=== PATIENT | female | born 1960 | race African-American/Black ===

== ENCOUNTER 2019-11-09 13:47 | Outpatient (CLI) | payer OTHER, SELFPAY ==
[2019-11-09 14:30] LABS: Basophils Percent Auto 0.4 % (0.2-1.2); Eosinophils Absolute Auto 0.1 K/mm3 (0-0.3); Eosinophils Percent Auto 1.8 % (0-4.4); Hemoglobin 13.4 g/dL (12.0-15.0); Lymphocytes Absolute Auto 1.64 K/mm3 (0.9-3.2); Lymphocytes Percent Auto 33.1 % (18.3-44.2); Mean Corpuscular HGB Conc 32.7 g/dl (32-36); Mean Corpuscular Hemoglobin 30.6 pg (26-34); Mean Corpuscular Volume 93.6 fl (80-100); Monocytes Absolute Auto 0.3 K/mm3 (0.1-0.6); Monocytes Percent Auto 6.5 % (2.6-8.5); Neutrophils Absolute Auto 2.9 K/mm3 (1.3-6.7); Neutrophils Percent Auto 58.2 % (45.5-73.1); Platelet Count Result 274 k/mm3 (150-375); Red Blood Count 4.38 M/mm3 (4.2-5.4); Red Cell Distribution Width 12.7 % (11.5-14.5)
[2019-11-09 14:42] LABS: Alanine Aminotransferase 54 U/L (4-35); Albumin Level 4.2 g/dL (3.5-5.1); Alkaline Phosphatase 166 U/L (38-126); Aspartate Amino Transferase 58 U/L (14-36); Bilirubin,Total 0.6 mg/dL (0.2-1.3); Blood Urea Nitrogen 14 mg/dL (7-17); Calcium 9.4 mg/dL (8.4-10.2); Carbon Dioxide 29 mmol/L (22-30); Chloride 104 mmol/L (98-107); Cholesterol 284 mg/dL (0-200); Estimated Glomerular Filt Rate > 60; Glucose 95 mg/dL (65-105); HDL Direct 84 mg/dL; Sodium 139 mmol/L (137-145); Triglycerides 96 mg/dL (<150)
[2019-11-09 14:53] LABS: LDL Cholesterol Direct 144 mg/dL
[2019-11-09 16:22] LABS: Vitamin D 25 Hydroxy < 12.8 ng/mL
== END 2019-11-09 13:48 | disposition home or self-care (01) ==
LOC: ANHLAB 13:50
PROVIDERS: PCP Internal Medicine; Visit Provider Nurse Practitioner
DX: Z13.228 Encounter for screening for other metabolic disorders (principal); E78.5 Hyperlipidemia, unspecified; E55.9 Vitamin D deficiency, unspecified
CPT/HCPCS: 36415; 80053; 80061; 82306; 85025

== ENCOUNTER 2020-07-23 10:00 | Outpatient (CLI) | payer OTHER, SELFPAY ==
[2020-07-23 10:22] LABS: Basophils Percent Auto 0.4 % (0.2-1.2); Eosinophils Absolute Auto 0.1 K/mm3 (0-0.3); Eosinophils Percent Auto 1.8 % (0-4.4); Hematocrit 41.6 % (37.0-47.0); Hemoglobin 13.7 g/dL (12.0-15.0); Immature Granulocyte Absolute 0.01 K/mm3 (0.00-0.031); Immature Granulocyte Percent A 0.2 % (0-0.5); Lymphocytes Absolute Auto 1.39 K/mm3 (0.9-3.2); Lymphocytes Percent Auto 30.9 % (18.3-44.2); Mean Corpuscular HGB Conc 32.9 g/dl (32-36); Mean Corpuscular Hemoglobin 31.1 pg (26-34); Mean Corpuscular Volume 94.5 fl (80-100); Monocytes Absolute Auto 0.4 K/mm3 (0.1-0.6); Monocytes Percent Auto 7.8 % (2.6-8.5); Neutrophils Absolute Auto 2.7 K/mm3 (1.3-6.7); Neutrophils Percent Auto 58.9 % (45.5-73.1); Platelet Count Result 247 k/mm3 (150-375); Red Cell Distribution Width 12.5 % (11.5-14.5); White Blood Count 4.5 K/mm3 (4.5-10.0)
[2020-07-23 10:37] LABS: Alanine Aminotransferase 41 U/L (4-35); Albumin Level 3.9 g/dL (3.5-5.1); Alkaline Phosphatase 137 U/L (38-126); Anion Gap 5 mmol/L (8-16); Aspartate Amino Transferase 43 U/L (14-36); Bilirubin,Total 0.7 mg/dL (0.2-1.3); Blood Urea Nitrogen 11 mg/dL (7-17); Calcium 8.9 mg/dL (8.4-10.2); Carbon Dioxide 30 mmol/L (22-30); Chloride 102 mmol/L (98-107); Cholesterol 292 mg/dL (0-200); Estimated Glomerular Filt Rate > 60; Glucose 112 mg/dL (65-105); HDL Direct 82 mg/dL; Sodium 137 mmol/L (137-145); Triglycerides 131 mg/dL (<150)
[2020-07-23 10:48] LABS: LDL Cholesterol Direct 163 mg/dL
[2020-07-23 11:05] LABS: Vitamin D 25 Hydroxy 22.5 ng/mL
[2020-07-23 17:27] LABS: Hemoglobin A1C 5.4 % (<5.7)
== END 2020-07-23 10:01 | disposition home or self-care (01) ==
PROVIDERS: Nurse Practitioner; PCP Internal Medicine; Visit Provider Nurse Practitioner
DX: E78.5 Hyperlipidemia, unspecified (principal); E55.9 Vitamin D deficiency, unspecified; I10 Essential (primary) hypertension; R73.9 Hyperglycemia, unspecified
CPT/HCPCS: 36415; 80053; 80061; 82306; 83036; 85025

== ENCOUNTER 2020-09-03 14:04 | Outpatient (CLI) | payer OTHER, SELFPAY | END 2020-09-03 14:05 | disposition home or self-care (01) | LOC: ANHCOVIDVC 14:04 | PROVIDERS: PCP Internal Medicine | DX: Z23 Encounter for immunization (principal) | CPT/HCPCS: 0001A; 91300 ==

== ENCOUNTER 2020-09-24 13:32 | Outpatient (CLI) | payer OTHER, SELFPAY | END 2020-09-24 13:33 | disposition home or self-care (01) | LOC: ANHCOVIDVC 13:32 | PROVIDERS: PCP Internal Medicine | DX: Z23 Encounter for immunization (principal) | CPT/HCPCS: 0002A; 91300 ==

== ENCOUNTER 2021-09-09 14:13 | Emergency (ER) | payer OTHER, SELFPAY ==
[2021-09-09 14:19] VITALS: BP 172/95; PULSE 67; RESP 16; TEMP 36.6; O2SAT 99
--- NOTE | 2021-09-09 14:31 | ED.URI ---
HPI - URI/Sore Throat General Chief Complaint: Upper Respiratory Infection Stated Complaint: Headache, cough, sore throat, dizzy Time Seen by Provider: 09/09/21 14:31 Source: patient and RN notes reviewed Mode of arrival: ambulatory Limitations: no limitations History of Present Illness HPI Narrative: 61-year-old female presented for complaint of not feeling well endorsing body aches, runny nose, dry cough and woozy. She denies chest pain, heart racing, shortness of breath, wheezing, nausea, vomiting, diarrhea, urinary complaints, fever or chills. She has boosted for COVID. She has not had a flu shot. She denies sick contacts. She has not taken anything for symptoms MD elicited complaint: cough Related Data Home Medications Medication Instructions Recorded Confirmed aspirin 81 mg tablet,delayed 81 mg PO DAILY 11/13/19 07/26/20 release cholecalciferol (vitamin D3) 125 5,000 unit PO DAILY cap 07/26/20 07/26/20 mcg (5,000 unit) capsule Allergies Allergy/AdvReac Type Severity Reaction Status Date / Time No Known Drug Allergies Allergy Unknown Unknown Verified 11/13/19 08:28 Review of Systems Review of Systems: CONSTITUTIONAL: Denies malaise, chills, sweats, fever EYES: Denies visual changes, redness, or discharge ENT: Reports rhinorrhea, congestion, sinus pain, otalgia, sore throat CARDIOVASCULAR: Denies chest pain, palpitations, edema RESPIRATORY: Reports cough, post nasal drainage. Denies dyspnea GASTROINTESTINAL: Denies abdominal pain, nausea, vomiting, diarrhea SKIN: Denies rash or itching MUSCULOSKELETAL: denies myalgia NEUROLOGIC: Denies headache PMFSH Past Medical History Medical History HLD (hyperlipidemia) HTN (hypertension) Vitamin D deficiency Surgical History Surgical History History of section Family History Family History Mother Patient's mother is in good health Family history of diabetes mellitus in first degree relative Family history of coronary artery disease Sibling Patient's sister is in good health Patient's brother is in good health Cerebrovascular accident Family history of malignant neoplasm of breast in first degree relative, Onset Age: 55 Father Hypertension Cerebrovascular accident Other Diabetes mellitus Family history of arthritis Family history of malignant neoplasm Social History Social History Smoking status: Never smoker Alcohol intake: current Exam Narrative: GENERAL: well-appearing HEAD: Normocephalic EYES: conjunctivae clear ENT: Mucous membranes moist. TM pearly ferreira with dull light reflex left ear; right ear cerumen unable to visualize TM; no tragal tenderness. Oropharynx erythematous without lesions or exudate, no drooling, no hoarseness, no trismus, uvula midline. NECK: Supple. No lymphadenopathy CHEST: Clear to auscultation, breath sounds equal. No wheezing, rhonchi, rales, or stridor. No respiratory distress, speaks in full sentences. HEART: Regular rate and rhythm. No murmur heard. SKIN: Warm, dry, no rash. NEURO: Alert and oriented x3. PSYCH: Normal mood and affect Course Course Emergency Course: Patient is aware of diagnosis, understands and agrees to treatment plan. Anticipatory guidance given. Patient agrees to follow-up as directed and is aware of reasons to seek care at the emergency department. Portions of this record may have been created with voice recognition software Level of Care: Express Care Visit Vital Signs Vital signs: Vital Signs Temperature 97.9 F 09/09/21 14:19 Pulse Rate 67 09/09/21 14:19 Respiratory Rate 16 09/09/21 14:19 Blood Pressure 172/95 H 09/09/21 14:19 Pulse Oximetry 99 09/09/21 14:19 Temperature 97.9 F 09/09/21 14:19
== END 2021-09-09 15:08 | disposition home or self-care (01) ==
PROVIDERS: Emergency Provider Nurse Practitioner Family; PCP Internal Medicine
DX: J06.0 Acute laryngopharyngitis (principal); I10 Essential (primary) hypertension; Z20.822 Contact with and (suspected) exposure to COVID-19; E78.5 Hyperlipidemia, unspecified; E55.9 Vitamin D deficiency, unspecified; Z79.82 Long term (current) use of aspirin
CPT/HCPCS: 87426; 87804; 99213; C9803; G0463

== ENCOUNTER 2022-03-11 11:10 | Outpatient (CLI) | payer OTHER, SELFPAY ==
[2022-03-11 18:31] LABS: Basophils Percent Auto 0.4 % (0.2-1.2); Eosinophils Absolute Auto 0.1 K/mm3 (0-0.3); Eosinophils Percent Auto 2.2 % (0-4.4); Hematocrit 41.4 % (37.0-47.0); Hemoglobin 13.1 g/dL (12.0-15.0); Immature Granulocyte Absolute 0.01 K/mm3 (0.00-0.031); Immature Granulocyte Percent A 0.2 % (0-0.5); Lymphocytes Absolute Auto 1.74 K/mm3 (0.9-3.2); Lymphocytes Percent Auto 32.6 % (18.3-44.2); Mean Corpuscular HGB Conc 31.6 g/dl (32-36); Mean Corpuscular Hemoglobin 30.6 pg (26-34); Mean Corpuscular Volume 96.7 fl (80-100); Mean Platelet Volume 9.5 fl (7.4-10.4); Monocytes Absolute Auto 0.3 K/mm3 (0.1-0.6); Monocytes Percent Auto 6.4 % (2.6-8.5); Neutrophils Absolute Auto 3.1 K/mm3 (1.3-6.7); Neutrophils Percent Auto 58.2 % (45.5-73.1); Platelet Count Result 289 k/mm3 (150-375); Red Blood Count 4.28 M/mm3 (4.2-5.4); Red Cell Distribution Width 12.9 % (11.5-14.5); White Blood Count 5.3 K/mm3 (4.5-10.0)
[2022-03-11 18:44] LABS: Hemoglobin A1C 5.5 % (<5.7)
[2022-03-11 18:46] LABS: Alanine Aminotransferase 62 U/L (6-35); Albumin Level 4.1 g/dL (3.5-5.1); Alkaline Phosphatase 158 U/L (38-126); Anion Gap 10 mmol/L (8-16); Aspartate Amino Transferase 94 U/L (14-36); Bilirubin,Total 0.5 mg/dL (0.2-1.3); Blood Urea Nitrogen 14 mg/dL (7-17); Calcium 9.3 mg/dL (8.4-10.2); Carbon Dioxide 29 mmol/L (22-30); Chloride 101 mmol/L (98-107); Cholesterol 324 mg/dL (0-200); Estimated Glomerular Filt Rate > 60; Glucose 105 mg/dL (65-110); HDL Direct 82 mg/dL; Potassium 4.5 mmol/L (3.4-5.0); Sodium 140 mmol/L (137-145); Triglycerides 95 mg/dL (<150)
[2022-03-11 19:04] LABS: LDL Cholesterol Direct 166 mg/dL
[2022-03-11 19:26] LABS: Vitamin D 25 Hydroxy 22.1 ng/mL
== END 2022-03-11 11:11 | disposition home or self-care (01) ==
LOC: ANHGOSHLAB 11:11
PROVIDERS: PCP Internal Medicine; Visit Provider Clinical Nurse Specialist
DX: R73.9 Hyperglycemia, unspecified (principal); I10 Essential (primary) hypertension; E55.9 Vitamin D deficiency, unspecified
CPT/HCPCS: 36415; 80053; 80061; 82306; 83036; 84443; 85025

== ENCOUNTER 2022-03-13 10:35 | Outpatient (CLI) | payer OTHER, SELFPAY ==
[2022-03-13 19:58] LABS: Iron 96 ug/dL (37-170)
[2022-03-13 20:07] LABS: Alanine Aminotransferase 70 U/L (6-35); Alkaline Phosphatase 170 U/L (38-126); Anion Gap 7 mmol/L (8-16); Aspartate Amino Transferase 61 U/L (14-36); Bilirubin,Total 0.5 mg/dL (0.2-1.3); Blood Urea Nitrogen 12 mg/dL (7-17); Calcium 9.4 mg/dL (8.4-10.2); Carbon Dioxide 28 mmol/L (22-30); Chloride 102 mmol/L (98-107); Estimated Glomerular Filt Rate > 60; Glucose 112 mg/dL (65-110); Sodium 137 mmol/L (137-145)
[2022-03-13 20:08] LABS: Percent Iron Saturation 29 % (20-50)
[2022-03-13 20:40] LABS: Hepatitis B Surface Antigen Negative (Negative)
[2022-03-13 20:50] LABS: HIV 1/2 Ab P24 Ag Result Negative (Negative)
== END 2022-03-13 10:36 | disposition home or self-care (01) ==
LOC: ANHGOSHLAB 10:36
PROVIDERS: PCP Internal Medicine; Visit Provider Clinical Nurse Specialist
DX: R74.8 Abnormal levels of other serum enzymes (principal)
CPT/HCPCS: 36415; 80053; 82728; 83540; 83550; 86703; 87340; G0432

== ENCOUNTER → 2022-03-24 08:10 | Outpatient (CLI) | payer OTHER, SELFPAY ==
--- NOTE | ~2022-03-24 | US_ITS ---
EXAMINATION: US right upper quadrant DATE: 03/24/2022 08:30 INDICATION: Abnormal liver function tests TECHNIQUE: Multiple grayscale and Doppler ultrasound images of the abdomen were obtained. COMPARISON: None available FINDINGS: The head and body of the pancreas are normal. The pancreatic tail is obscured by bowel gas. The liver is normal with normal echogenicity and echotexture. No surface nodularity. Normal hepatope doc flow in the main portal vein. The gallbladder is normal with no abnormal wall thickening, pericho lecystic fluid or stones. The normal common bile duct measures 4 mm. There was no sonographic Flores sign. IMPRESSION: 1. No sonographic correlate for the patient's symptoms. Reviewed, dictated and finalized at location A.
== END ==
PROVIDERS: PCP Clinical Nurse Specialist; Visit Provider Clinical Nurse Specialist
DX: R74.8 Abnormal levels of other serum enzymes (principal)
CPT/HCPCS: 76705

== ENCOUNTER 2023-03-08 14:47 | Emergency (ER) | payer OTHER, SELFPAY ==
[2023-03-08 15:11] VITALS: BP 178/97; PULSE 73; RESP 18; TEMP 35.8; O2SAT 97
--- NOTE | 2023-03-08 15:37 | ED.URI ---
HPI - URI/Sore Throat General Chief Complaint: Upper Respiratory Infection Stated Complaint: Cold symptoms Time Seen by Provider: 03/08/23 15:30 Source: patient and RN notes reviewed Mode of arrival: ambulatory Limitations: no limitations History of Present Illness HPI Narrative: Patient presents today complaining of 3 day history of cough, sore throat, body aches, congestion, rhinorrhea. Worse over the last 2 days. Denies fever or shortness of breath. She currently rates her pain 4/10 and has been taking ibuprofen and cough medicine with mild relief. No history of asthma or COPD. Denies known sick contacts. She is a nonsmoker Related Data Home Medications Medication Instructions Recorded Confirmed cholecalciferol (vitamin D3) 125 5,000 unit PO DAILY 07/26/20 03/08/23 mcg (5,000 unit) capsule Allergies Allergy/AdvReac Type Severity Reaction Status Date / Time No Known Drug Allergies Allergy Unknown Unknown Verified 03/08/23 15:06 Review of Systems Review of Systems: CONSTITUTIONAL: Denies fever, chills, or sweats.+ body aches EYES: Denies visual changes, redness, or discharge. ENT: + right ear pain, sore throat, congestion, rhinorrhea CARDIOVASCULAR: Denies chest pain, palpitations, or edema. RESPIRATORY: Denies dyspnea.+ cough GASTROINTESTINAL: Denies abdominal pain, nausea, vomiting, or diarrhea. GENITOURINARY: Denies dysuria or hematuria. SKIN: Denies rash, itching, or wounds. MUSCULOSKELETAL: Denies back pain, joint pain, or myalgia. NEUROLOGIC: Denies headache, numbness, tingling, or weakness. PSYCH: Denies depression or anxiety. [facility] Past Medical History Medical History HLD (hyperlipidemia) HTN (hypertension) Vitamin D deficiency Surgical History Surgical History History of section Family History Family History Mother Patient's mother is in good health Family history of diabetes mellitus in first degree relative Family history of coronary artery disease Sibling Patient's sister is in good health Patient's brother is in good health Cerebrovascular accident Family history of malignant neoplasm of breast in first degree relative, Onset Age: 55 Father Hypertension Cerebrovascular accident Other Diabetes mellitus Family history of arthritis Family history of malignant neoplasm Social History Social History Smoking status: Never smoker Alcohol intake: current Comments At time of signature, I have reviewed and agree with nursing past medical, surgical, social and family history unless otherwise noted. Please see nursing chart for further information. There is no relevant family history pertinent to the presenting complaint Exam Narrative: GENERAL: Well-appearing, well-nourished, and in no acute distress. HEAD: Normocephalic, atraumatic. EYES: EOMI. No redness or drainage. Conjunctivae normal. ENT: Mucous membranes pink and moist. Nares clear. No rhinorrhea. TMs normal bilaterally. Throat normal. Uvula midline. NECK: Normal AROM. Supple. No lymphadenopathy. CHEST: No respiratory distress. Clear to auscultation. Harsh cough noted. HEART: Regular rate and rhythm. No murmur appreciated. EXTREMITIES: Normal range of motion. No edema. SKIN: Warm, dry, no rash. Capillary refill normal. Normal skin turgor. NEURO: No focal deficits. Alert and oriented x3. Gait steady. PSYCH: Normal affect. No signs of depression or anxiety. Course Course Level of Care: Express Care Visit Vital Signs Vital signs: Vital Signs Temperature 96.5 F L 03/08/23 15:11 Pulse Rate 73 03/08/23 15:11 Respiratory Rate 18 03/08/23 15:11 Blood Pressure 178/97 H 03/08/23 15:11 Pulse Oximetry 97 03/08/23 15
== END 2023-03-08 15:58 | disposition home or self-care (01) ==
PROVIDERS: Emergency Provider Nurse Practitioner; PCP Internal Medicine
DX: U07.1 COVID-19 (principal); E78.5 Hyperlipidemia, unspecified; I10 Essential (primary) hypertension; E55.9 Vitamin D deficiency, unspecified
CPT/HCPCS: 87081; 87426; 87880; 99213; C9803; G0463

== ENCOUNTER 2024-01-20 10:51 | Emergency (ER) | payer OTHER, SELFPAY ==
[2024-01-20 11:00] VITALS: BP 191/96; PULSE 73; RESP 16; TEMP 36.2; O2SAT 100
[2024-01-20 11:14] VITALS: BP 190/87
--- NOTE | 2024-01-20 11:25 | ECG_ITS ---
Test Date: 2024-01-20 11:36:16 Measurements Intervals [place] Rate: 63 P: 39 [place]: 203 QRS: -12 QRSD: 114 T: 160 QT: 449 QTc: 462 Interpretive Statements SINUS RHYTHM DELAYED PRECORDIAL R/S TRANSITION LEFT VENTRICULAR HYPERTROPHY AND ST-T CHANGE T WAVE ABNORMALITY IN ATNTEROLATERAL LEADS- CONSIDER ISCHEMIA BASELINE ARTIFACT- I, II, III, AVR, AVL, AVF, V1-V6 ABNORMAL ECG No previous ECG available for comparison Electronically Signed On 01-20-2024 12:00:55 CDT by Jay Gardner D.O.
--- NOTE | 2024-01-20 11:28 | ED.GENADULT ---
HPI - General Adult General Chief complaint: Unspecified Stated complaint: High Blood Pressure Time Seen by Provider: 01/20/24 11:19 Source: patient and RN notes reviewed Mode of arrival: ambulatory Limitations: no limitations History of Present Illness HPI narrative: Patient presents today complaining of mild dizziness and increased heart rate as well as increased blood pressure. Symptoms began this morning. 1.5 hours prior to exam, patient's blood pressure was measured at home and was 213/98. This was approximately 15 minutes after taking her blood pressure medication. Upon exam, patient states she is feeling better. Patient states she does take her hypertensive medications but not at the same time everyday. Denies chest pain, shortness of breath, headache, numbness or tingling, weakness or any other symptoms. States she has had several episodes of dizziness in the past and has never been evaluated for them. Related Data Home Medications Medication Instructions Recorded Confirmed cholecalciferol (vitamin D3) 125 5,000 unit PO DAILY 07/26/20 01/20/24 mcg (5,000 unit) capsule Allergies Allergy/AdvReac Type Severity Reaction Status Date / Time No Known Drug Allergies Allergy Unknown Unknown Verified 01/20/24 11:08 Review of Systems Review of Systems: CONSTITUTIONAL: Denies body aches, fever, chills, or sweats. EYES: Denies visual changes, redness, or discharge. ENT: Denies rhinorrhea, congestion, sore throat, or otalgia. CARDIOVASCULAR: Denies chest pain, palpitations, or edema. RESPIRATORY: Denies cough or dyspnea. GASTROINTESTINAL: Denies abdominal pain, nausea, vomiting, or diarrhea. GENITOURINARY: Denies dysuria or hematuria. SKIN: Denies rash, itching, or wounds. MUSCULOSKELETAL: Denies back pain, joint pain, or myalgia. NEUROLOGIC: Denies headache, numbness, tingling, or weakness.+ dizziness PSYCH: Denies depression or anxiety. [facility] Past Medical History Medical History HLD (hyperlipidemia) HTN (hypertension) Vitamin D deficiency Surgical History Surgical History History of section Family History Family History Mother Patient's mother is in good health Family history of diabetes mellitus in first degree relative Family history of coronary artery disease Sibling Patient's sister is in good health Patient's brother is in good health Cerebrovascular accident Family history of malignant neoplasm of breast in first degree relative, Onset Age: 55 Father Hypertension Cerebrovascular accident Other Diabetes mellitus Family history of arthritis Family history of malignant neoplasm Social History Social History Smoking status: Never smoker Alcohol intake: current Comments At time of signature, I have reviewed and agree with nursing past medical, surgical, social and family history unless otherwise noted. Please see nursing chart for further information. There is no relevant family history pertinent to the presenting complaint Exam Narrative: GENERAL: Well-appearing, well-nourished, and in no acute distress. HEAD: Normocephalic, atraumatic. EYES: EOMI. PERRL. No redness or drainage. Conjunctivae normal. ENT: Mucous membranes pink and moist. NECK: Normal AROM. Supple. No lymphadenopathy. CHEST: No respiratory distress. Clear to auscultation. HEART: Regular rate and rhythm. No murmur appreciated. Normal peripheral pulses. MUSCULOSKELETAL: No bony tenderness. EXTREMITIES: Normal range of motion. No edema. SKIN: Warm, dry, no rash. Capillary refill normal. Normal skin turgor. NEURO: No focal deficits. Alert and oriented x3. Gait steady. PSYCH: Normal affect. No signs of depression or anxiety. Course C
== END 2024-01-20 11:59 | disposition home or self-care (01) ==
PROVIDERS: Emergency Provider Nurse Practitioner; PCP Internal Medicine
DX: R42 Dizziness and giddiness (principal); I10 Essential (primary) hypertension; R94.31 Abnormal electrocardiogram [ECG] [EKG]; E78.5 Hyperlipidemia, unspecified; E55.9 Vitamin D deficiency, unspecified
CPT/HCPCS: 93005; 99213; G0463

== ENCOUNTER 2024-01-21 16:36 | Emergency (ER) | payer OTHER, SELFPAY ==
[2024-01-21 17:21] VITALS: BP 153/76; PULSE 71; RESP 20; TEMP 36.1; O2SAT 98
--- NOTE | 2024-01-21 17:22 | ECG_ITS ---
Test Date: 2024-01-21 19:01:15 Measurements Intervals [place] Rate: 64 P: 32 SD: 209 QRS: -17 QRSD: 112 T: 143 QT: 422 QTc: 438 Interpretive Statements SINUS RHYTHM POSSIBLE LEFT ATRIAL ENLARGEMENT INTRAVENTRICULAR CONDUCTION DELAY DELAYED PRECORDIAL R/S TRANSITION LEFT VENTRICULAR HYPERTROPHY AND ST-T CHANGE T WAVE ABNORMALITY IN LATERAL LEADS- CONSIDER ISCHEMIA BASELINE ARTIFACT- II, III, AVR, AVL, AVF, V1 ABNORMAL ECG Compared to ECG 01/20/2024 11:36:16 NO SIGNIFICANT CHANGE Electronically Signed On 01-21-2024 20:42:45 CDT by Jay Gardner D.O.
--- NOTE | 2024-01-21 17:23 | ED.RECABL ---
HPI - Recheck/Abnormal Lab/Rx General Chief Complaint: Recheck/Abnormal Lab/Rx Stated Complaint: HTN Time Seen by Provider: 01/21/24 17:23 Focused HPI: this is a 63-year-old female that presents to the emergency department for elevated blood pressure reading. Reports her primary has been trying to tweak her medications. She is continuing to be elevated. Her family member took her blood pressure today and was over 200 systolic which prompted them to be seen. She is not having any symptoms currently. Reports she felt like she had some palpitations yesterday. Denies chest pain, shortness of breath, headache. GENERAL: Well-appearing, well-nourished, and in no acute distress. HEAD: Normocephalic, atraumatic. CHEST: Clear to auscultation. ?No respiratory distress. HEART: Regular rate and rhythm.? NEURO: ?Alert and oriented x3. Patient screened in triage and initial orders placed.? ?Additional care and disposition to be based upon?diagnostic testing and treatment. Related Data Home Medications Medication Instructions Recorded Confirmed cholecalciferol (vitamin D3) 125 5,000 unit PO DAILY 07/26/20 01/20/24 mcg (5,000 unit) capsule Allergies Allergy/AdvReac Type Severity Reaction Status Date / Time No Known Drug Allergies Allergy Unknown Unknown Verified 01/23/24 13:45 PMFSH Past Medical History Medical History HLD (hyperlipidemia) HTN (hypertension) Vitamin D deficiency Surgical History Surgical History History of section Family History Family History Mother Patient's mother is in good health Family history of diabetes mellitus in first degree relative Family history of coronary artery disease Sibling Patient's sister is in good health Patient's brother is in good health Cerebrovascular accident Family history of malignant neoplasm of breast in first degree relative, Onset Age: 55 Father Hypertension Cerebrovascular accident Other Diabetes mellitus Family history of arthritis Family history of malignant neoplasm Social History Social History Smoking status: Never smoker Alcohol intake: current Course Vital Signs Vital signs: Vital Signs Temperature 96.9 F L 01/21/24 17:21 Pulse Rate 71 01/21/24 17:21 Respiratory Rate 20 01/21/24 17:21 Blood Pressure 153/76 H 01/21/24 17:21 Pulse Oximetry 98 01/21/24 17:21 Oxygen Delivery Room Air 01/21/24 17:21 Temperature 96.9 F L 01/21/24 17:21 Pulse Rate 71 01/21/24 17:21 Respiratory Rate 20 01/21/24 17:21 Blood Pressure 153/76 H 01/21/24 17:21 Pulse Oximetry 98 01/21/24 17:21 Oxygen Delivery Room Air 01/21/24 17:21 MDM - Recheck/Abnormal Lab/Rx Lab Data 01/21/24 19:07 01/21/24 19:07 Labs: Lab Results 01/21/24 Range/Units 19:07 WBC 6.5 (4.5-10.0) K/mm3 RBC 4.25 (4.2-5.4) M/mm3 Hgb 13.2 (12.0-15.0) g/dL Hct 40.2 (37.0-47.0) % MCV 94.6 (80-100) fl MCH 31.1 (26-34) pg MCHC 32.8 (32-36) g/dl RDW 12.9 (11.5-14.5) % Plt Count 261 (150-375) k/mm3 MPV 8.9 (7.4-10.4) fl Immature Gran % (Auto) 0.2 (0-0.5) % Neut % (Auto) 62.1 (45.5-73.1) % Lymph % (Auto) 30.4 (18.3-44.2) % [place] % (Auto) 5.4 (2.6-8.5) % Eos % (Auto) 1.6 (0-4.4) % Baso % (Auto) 0.3 (0.2-1.2) % Lymph # (Auto) 1.96 (0.9-3.2) K/mm3 [place] # (Auto) 0.4 (0.1-0.6) K/mm3 Eos # (Auto) 0.1 (0-0.3) K/mm3 Baso # (Auto) 0.0 (0.0-0.1) K/mm3 Abs Immat Gran (auto) 0.01 (0.00-0.031) K/mm3 Absolute Neuts (auto) 4.0 (1.3-6.7) K/mm3 Absolute Nucleated RBC 0.000 (0.0-0.012) K/mm3 Nucleated RBC % 0.0 (0.0-0.2) % Sodium 139 (137-145) mmol/L Potassium 4.0 (3.4-5.0) mmol/L Chloride 105 (9
[2024-01-21 19:15] LABS: Basophils Percent Auto 0.3 % (0.2-1.2); Eosinophils Absolute Auto 0.1 K/mm3 (0-0.3); Eosinophils Percent Auto 1.6 % (0-4.4); Hematocrit 40.2 % (37.0-47.0); Hemoglobin 13.2 g/dL (12.0-15.0); Immature Granulocyte Absolute 0.01 K/mm3 (0.00-0.031); Immature Granulocyte Percent A 0.2 % (0-0.5); Lymphocytes Absolute Auto 1.96 K/mm3 (0.9-3.2); Lymphocytes Percent Auto 30.4 % (18.3-44.2); Mean Corpuscular HGB Conc 32.8 g/dl (32-36); Mean Corpuscular Hemoglobin 31.1 pg (26-34); Mean Corpuscular Volume 94.6 fl (80-100); Mean Platelet Volume 8.9 fl (7.4-10.4); Monocytes Absolute Auto 0.4 K/mm3 (0.1-0.6); Monocytes Percent Auto 5.4 % (2.6-8.5); Neutrophils Percent Auto 62.1 % (45.5-73.1); Platelet Count Result 261 k/mm3 (150-375); Red Blood Count 4.25 M/mm3 (4.2-5.4); Red Cell Distribution Width 12.9 % (11.5-14.5); White Blood Count 6.5 K/mm3 (4.5-10.0)
[2024-01-21 19:25] LABS: Alanine Aminotransferase 42 U/L (6-35); Albumin Level 4.1 g/dL (3.5-5.1); Alkaline Phosphatase 164 U/L (38-126); Anion Gap 7 mmol/L (4-12); Aspartate Amino Transferase 47 U/L (14-36); Bilirubin,Total 0.4 mg/dL (0.2-1.3); Blood Urea Nitrogen 19 mg/dL (7-17); Calcium 9.8 mg/dL (8.4-10.2); Carbon Dioxide 27 mmol/L (22-30); Chloride 105 mmol/L (98-107); Estimated CRCL calculation 83 ml/min; Estimated Glomerular Filt Rate > 60; Glucose 127 mg/dL (65-110); Sodium 139 mmol/L (137-145)
== END 2024-01-21 21:22 | disposition left against medical advice (07) ==
PROVIDERS: Emergency Provider Physician Assistant; PCP Internal Medicine
DX: I10 Essential (primary) hypertension (principal); E78.5 Hyperlipidemia, unspecified; E55.9 Vitamin D deficiency, unspecified
CPT/HCPCS: 36415; 80053; 85025; 93005; 99199

== ENCOUNTER 2024-01-23 13:29 | Emergency (ER) | payer OTHER, SELFPAY ==
[2024-01-23] VITALS (11 sets, daily range): BP systolic 151–179; BP diastolic 52–88; PULSE 56–63; RESP 13–18; TEMP 36.7; O2SAT 96–99
--- NOTE | ~2024-01-23 | XR_ITS ---
XR chest 2V DATE: 01/23/2024 14:04 INDICATION: Chest pain, hypertension TECHNIQUE: PA and lateral views COMPARISON: 03/26/2014 2 view chest FINDINGS: There is cardiomegaly, the transverse cardiothoracic ratio 16.7/30.8. There is aortic tortu osity. No hilar or mediastinal enlargement. No pulmonary infiltrate or consolidation, pleural effusion or pulmonary vascular congestion or pneumo thorax is detected. IMPRESSION: Mild cardiomegaly No active pulmonary disease Reviewed, dictated and finalized at location J.
--- NOTE | ~2024-01-23 | CT_ITS ---
CT brain wo con Ordering provider: Josesito Zamorano APRN History: 63 years Female with . dizziness, patiño, htn . Comparison: March 26, 2014 Technique: CT of the head without contrast. Radiation reduction technique utilized. The dose-length product was 605.33 mGy-cm FINDINGS: BRAIN PARENCHYMA AND CSF SPACES: No midline shift, mass effect or hemorrhage. The brain parenchyma a nd CSF spaces are otherwise normal. Empty sella turcica. VISUALIZED PARANASAL SINUSES: Well aerated. MASTOIDS: Well aerated. BONES: The bones appear intact. SOFT TISSUES: Visualized nasopharynx is normal. Superficial soft tissues are normal. IMPRESSION: No acute intracranial findings. Reviewed, dictated and finalized at location A.
--- NOTE | 2024-01-23 13:30 | ECG_ITS ---
Test Date: 2024-01-23 13:35:14 Measurements Intervals [place] Rate: 60 P: 34 [place]: 211 QRS: -13 QRSD: 118 T: 164 QT: 444 QTc: 447 Interpretive Statements SINUS RHYTHM WITH FIRST DEGREE AV BLOCK POSSIBLE LEFT ATRIAL ENLARGEMENT INTRAVENTRICULAR CONDUCTION DELAY BORDERLINE R WAVE PROGRESSION, ANTERIOR LEADS LEFT VENTRICULAR HYPERTROPHY AND ST-T CHANGE T WAVE ABNORMALITY IN ANTEROLATERAL LEADS- CONSIDIER ISCHEMIA BASELINE ARTIFACT- I, II, III, AVR, AVL, AVF, V1 ABNORMAL ECG Compared to ECG 01/21/2024 19:01:15 NO SIGNIFICANT CHANGE Electronically Signed On 01-23-2024 15:14:48 CDT by Jay Gardner D.O.
[2024-01-23 13:47] LABS: Basophils Percent Auto 0.4 % (0.2-1.2); Eosinophils Absolute Auto 0.1 K/mm3 (0-0.3); Hematocrit 41.2 % (37.0-47.0); Hemoglobin 13.9 g/dL (12.0-15.0); Lymphocytes Absolute Auto 1.71 K/mm3 (0.9-3.2); Lymphocytes Percent Auto 33.8 % (18.3-44.2); Mean Corpuscular HGB Conc 33.7 g/dl (32-36); Mean Corpuscular Hemoglobin 31.6 pg (26-34); Mean Corpuscular Volume 93.6 fl (80-100); Mean Platelet Volume 8.9 fl (7.4-10.4); Monocytes Absolute Auto 0.4 K/mm3 (0.1-0.6); Monocytes Percent Auto 7.5 % (2.6-8.5); Neutrophils Absolute Auto 2.9 K/mm3 (1.3-6.7); Neutrophils Percent Auto 56.3 % (45.5-73.1); Platelet Count Result 253 k/mm3 (150-375); Red Cell Distribution Width 12.6 % (11.5-14.5); White Blood Count 5.1 K/mm3 (4.5-10.0)
--- NOTE | 2024-01-23 13:50 | ED.CHESTPAIN ---
HPI - Chest Pain General Chief Complaint: Chest Pain Stated Complaint: tightness in chest Time Seen by Provider: 01/23/24 13:50 Source: patient Mode of arrival: ambulatory Limitations: no limitations History of Present Illness HPI narrative: Verónica is a 63-year-old female patient presenting to the emergency room today with complaints of chest tightness, dizziness, and high blood pressure. She reports her highest systolic pressure over the last 3 days was 213. she denies any associated shortness of breath. History hyperlipidemia and hypertension. States she had a headache and blurry vision yesterday but that has subsided. Related Data Home Medications Medication Instructions Recorded Confirmed cholecalciferol (vitamin D3) 125 5,000 unit PO DAILY 07/26/20 01/20/24 mcg (5,000 unit) capsule Allergies Allergy/AdvReac Type Severity Reaction Status Date / Time No Known Drug Allergies Allergy Unknown Unknown Verified 01/23/24 13:45 Review of Systems Review of Systems: Pertinent positives per HPI. Patient denies any fever, chills, rash, headache, visual changes, cough, runny nose, sore throat, shortness of breath, palpitations, nausea, vomiting, diarrhea, constipation, abdominal pain, or any urinary issues. [facility] Past Medical History Medical History HLD (hyperlipidemia) HTN (hypertension) Vitamin D deficiency Surgical History Surgical History History of section Family History Family History Mother Patient's mother is in good health Family history of diabetes mellitus in first degree relative Family history of coronary artery disease Sibling Patient's sister is in good health Patient's brother is in good health Cerebrovascular accident Family history of malignant neoplasm of breast in first degree relative, Onset Age: 55 Father Hypertension Cerebrovascular accident Other Diabetes mellitus Family history of arthritis Family history of malignant neoplasm Social History Social History Smoking status: Never smoker Alcohol intake: current Comments At the time of my signature, I reviewed and agree with the nursing past medical, surgical, social, and family history. There is no relevant family history pertinent to the patient complaint. Exam Narrative: General: Well-developed, obese, in no apparent distress Head: Normocephalic, atraumatic. Cardio: Regular rate and rhythm, s1 and s2 normal, no murmur appreciated. Resp: Clear to auscultation bilaterally, no rhonchi, rales, wheezing or rubs. Extremities: No deformity, no edema, no cyanosis, capillary refill less than 2 seconds, peripheral pulses palpable and strong. Integumentary: [place], warm, and dry, intact without lesion, no rashes. Course Course Emergency Course: Portions of this record may have been created with voice recognition software. Vital Signs Vital signs: Vital Signs Temperature 36.7 C 01/23/24 13:41 Pulse Rate 60 01/23/24 13:41 Respiratory Rate 17 01/23/24 13:41 Blood Pressure 179/77 H 01/23/24 13:41 Pulse Oximetry 99 01/23/24 13:41 Oxygen Delivery Room Air 01/23/24 13:41 Temperature 36.7 C 01/23/24 13:41 Pulse Rate 62 01/23/24 16:44 Respiratory Rate 17 01/23/24 16:44 Blood Pressure 127/84 01/23/24 16:44 Pulse Oximetry 99 01/23/24 16:44 Oxygen Delivery Room Air 01/23/24 15:18 Vital signs reviewed MDM - Chest Pain MDM Narrative Medical decision making narrative: At the time of visit patient is resting comfortably on the exam table. Patient appears to be nontoxic. EKG: EKG shows sinus rhythm with a first-degree AV block heart rate [address] elevation, depression, or T-wave inversions. Repeat EKG s
[2024-01-23] MEDS: ASPIRIN 81 MG CHEWABLE TABLET 324 MG PO (13:55)
[2024-01-23 13:58] LABS: Prothrombin Time 13.1 Seconds (11.1-14.7)
[2024-01-23 13:59] LABS: Partial Thromboplastin Time 27.6 Seconds (22.3-36.8)
[2024-01-23 14:02] LABS: Alanine Aminotransferase 39 U/L (6-35); Albumin Level 4.1 g/dL (3.5-5.1); Alkaline Phosphatase 150 U/L (38-126); Anion Gap 7 mmol/L (4-12); Aspartate Amino Transferase 37 U/L (14-36); Bilirubin,Total 0.7 mg/dL (0.2-1.3); Blood Urea Nitrogen 13 mg/dL (7-17); Calcium 9.2 mg/dL (8.4-10.2); Carbon Dioxide 28 mmol/L (22-30); Chloride 102 mmol/L (98-107); Estimated CRCL calculation 80 ml/min; Estimated Glomerular Filt Rate > 60; Glucose 95 mg/dL (65-110); Lipase 81 U/L (23-300); Sodium 137 mmol/L (137-145)
[2024-01-23 14:14] LABS: Troponin I < 0.012 ng/mL (0.000-0.034)
--- NOTE | 2024-01-23 16:16 | ECG_ITS ---
Test Date: 2024-01-23 16:21:09 Measurements Intervals [place] Rate: 58 P: 37 [place]: 210 QRS: -15 QRSD: 121 T: 157 QT: 460 QTc: 452 Interpretive Statements SINUS BRADYCARDIA WITH FIRST DEGREE AV BLOCK POSSIBLE LEFT ATRIAL ENLARGEMENT DELAYED PRECORDIAL R/S TRANSITION LEFT VENTRICULAR HYPERTROPHY AND ST-T CHANGE T WAVE ABNORMALITY IN ANTEROLATERAL LEADS- CONSIDER ISCHEMIA BASELINE ARTIFACT- I, II, III, AVR, AVL, AVF, V1-V6 ABNORMAL ECG Compared to ECG 01/23/2024 13:35:14 NO SIGNIFICANT CHANGE Electronically Signed On 01-23-2024 21:08:26 CDT by Jay Gardner D.O.
[2024-01-23 16:48] LABS: Troponin I < 0.012 ng/mL (0.000-0.034)
== END 2024-01-23 17:37 | disposition home or self-care (01) ==
PROVIDERS: Emergency Medicine; Emergency Provider Nurse Practitioner Family; PCP Internal Medicine
DX: R07.89 Other chest pain (principal); R42 Dizziness and giddiness; I10 Essential (primary) hypertension; E78.5 Hyperlipidemia, unspecified; E55.9 Vitamin D deficiency, unspecified; Z79.899 Other long term (current) drug therapy; I44.0 Atrioventricular block, first degree; R00.1 Bradycardia, unspecified; R94.31 Abnormal electrocardiogram [ECG] [EKG]; I51.7 Cardiomegaly
CPT/HCPCS: 36415; 70450; 71046; 80053; 83690; 84484; 85025; 85610; 85730; 93005; 99284; A9270

== ENCOUNTER 2024-02-01 09:18 | Outpatient (CLI) | payer OTHER, SELFPAY ==
[2024-02-01 14:19] LABS: Basophils Percent Auto 0.4 % (0.2-1.2); Eosinophils Absolute Auto 0.1 K/mm3 (0-0.3); Eosinophils Percent Auto 1.7 % (0-4.4); Hematocrit 40.7 % (37.0-47.0); Hemoglobin 13.3 g/dL (12.0-15.0); Immature Granulocyte Absolute 0.01 K/mm3 (0.00-0.031); Immature Granulocyte Percent A 0.2 % (0-0.5); Lymphocytes Percent Auto 27.8 % (18.3-44.2); Mean Corpuscular HGB Conc 32.7 g/dl (32-36); Mean Corpuscular Hemoglobin 31.1 pg (26-34); Mean Corpuscular Volume 95.3 fl (80-100); Monocytes Absolute Auto 0.3 K/mm3 (0.1-0.6); Monocytes Percent Auto 6.4 % (2.6-8.5); Neutrophils Percent Auto 63.5 % (45.5-73.1); Platelet Count Result 274 k/mm3 (150-375); Red Blood Count 4.27 M/mm3 (4.2-5.4); Red Cell Distribution Width 12.2 % (11.5-14.5); White Blood Count 4.7 K/mm3 (4.5-10.0)
[2024-02-01 14:34] LABS: Alanine Aminotransferase 54 U/L (6-35); Albumin Level 3.9 g/dL (3.5-5.1); Alkaline Phosphatase 158 U/L (38-126); Anion Gap 7 mmol/L (4-12); Aspartate Amino Transferase 78 U/L (14-36); Bilirubin,Total 0.8 mg/dL (0.2-1.3); Blood Urea Nitrogen 14 mg/dL (7-17); Calcium 9.5 mg/dL (8.4-10.2); Carbon Dioxide 32 mmol/L (22-30); Chloride 101 mmol/L (98-107); Cholesterol 237 mg/dL (0-200); Estimated Glomerular Filt Rate > 60; Glucose 99 mg/dL (65-110); HDL Direct 64 mg/dL; Potassium 3.5 mmol/L (3.4-5.0); Sodium 140 mmol/L (137-145); Triglycerides 79 mg/dL (<150)
[2024-02-01 14:45] LABS: LDL Cholesterol Direct 117 mg/dL
[2024-02-01 14:53] LABS: Vitamin D 25 Hydroxy 42.1 ng/mL
[2024-02-01 16:08] LABS: Hemoglobin A1C 5.8 % (<5.7)
== END 2024-02-01 09:19 | disposition home or self-care (01) ==
LOC: ANHGOSHLAB 09:19
PROVIDERS: PCP Internal Medicine; Visit Provider Clinical Nurse Specialist
DX: R73.9 Hyperglycemia, unspecified (principal); E55.9 Vitamin D deficiency, unspecified; E78.5 Hyperlipidemia, unspecified; I10 Essential (primary) hypertension; Z13.228 Encounter for screening for other metabolic disorders
CPT/HCPCS: 36415; 80053; 80061; 82306; 83036; 85025

== ENCOUNTER 2024-08-19 11:44 | Emergency (ER) | payer MEDICARE, SELFPAY ==
--- NOTE | ~2024-08-19 | XR_ITS ---
EXAMINATION: XR chest 2V DATE: 08/19/2024 14:12 INDICATION: Influenza. TECHNIQUE: Frontal and lateral views of the chest were obtained. COMPARISON: Chest 2 view 01/23/2024 FINDINGS: There is mild atelectasis at left lung base. No pleural effusion or pneumothorax. The heart size is normal. IMPRESSION: 1. Mild atelectasis at left lung base. Reviewed, dictated and finalized at location A. INVESTIGATOR
[2024-08-19 11:46] VITALS: BP 118/50; PULSE 77; RESP 18; TEMP 37.7; O2SAT 96
--- OUTSIDE RECORDS SUMMARY | 2024-08-19 11:47 | XMS_ITS | Encounter Summary ---
Author Organization [facility] Healthcare Address [address] [place] [address] Care Team Providers Care Dental Technician Name Role Phone Murray Cantu DO Primary Care Provider +1- [phone] Reason for Visit * Reason Comments Flu Symptoms Patient here for c/o flu sx, fever, loss of taste and smell, body aches, unsteady gait and ringing in ears that started wednesday Encounter Details Date Type Department Care Team (Late st Contact Info) Description 08/19/2024 11:45 AM DIRECTOR OF ANALYTICS Office Visit [facility] Medical Group Convenient Care at [address] [phone] Steffany Lynn PA [address] [place] [address] [address] [place] [address] Influenza A (Primary Dx); Abnormal gait; Dizziness Social History Tobacco Use Types Packs/Day Years Used Date Smoking Tobacco: Never Assessed Comments Unknown Sex and Gender Information Value Date Recorded Sex Assigned at Not on file Legal Sex Female 1:45 AM DIRECTOR OF ANALYTICS Gender Identity Not on file Sexual Orientation Not on file documented as of this encounter Last Filed Vital Signs Vital Sign Reading Time Taken Comments Blood Pressure 106/60 08/19/2024 11:06 AM DIRECTOR OF ANALYTICS Pulse 77 08/19/2024 11:06 AM DIRECTOR OF ANALYTICS Temperature 38.2 C (100.8 F) 08/19/2024 11:06 AM DIRECTOR OF ANALYTICS Respiratory Rate 20 08/19/2024 11:06 AM DIRECTOR OF ANALYTICS Oxygen Saturation 98% 08/19/2024 11:06 AM DIRECTOR OF ANALYTICS Inhaled Oxygen Concentration - - Weight 104.3 kg (230 lb) 08/19/2024 11:06 AM DIRECTOR OF ANALYTICS Height 167.6 cm (5' 6 ) 08/19/2024 11:06 AM DIRECTOR OF ANALYTICS Body Mass Index 37.12 08/19/2024 11:06 AM DIRECTOR OF ANALYTICS documented in this encounter Patient Instructions * Patient Instructions* Steffany Lynn PA - 08/19/2024 11:45 AM DIRECTOR OF ANALYTICS Influenza ?? Supportive care is the focus of care with influenza-make sure to stay well- hydrated and treat symptoms with over the counter medications for symptom relief. ?? Take guaifenesin expectorants, i.e. Maximum Strength Mucinex, Robitussin, or store brand for chest congestion. ?? For cough, dextromethorphan (Delsym syrup, Robitussin cough capsules or store brand). Dextromethorphan is considered safe for and breast feeding women. ?? Antihistamine, i.e. Claritin, Zyrtec or Benadryl for nasal drainage, per package directions. ?? Increase oral fluids to at least 2 liters (2 quarts) of non-caffeinated, non- alcoholic beveragesdaily ?? Increase rest, monitor temperature ?? May alternate acetaminophen (Tylenol) and ibuprofen (Motrin or Advil) with food every 4-6 hours for fever, body aches, headache or sore throat. Do not exceed maximum daily dose per package instructions ?? May use hard candy, throat lozenges, Chloraseptic spray or warm salt water gargles to soothe throat ?? Activity as tolerated, Avoid crowds and large groups ?? Avoid spreading germs by washing hands frequently and covering mouth when coughing ?? People with influenza are contagious 1 day before symptoms begin and up to 7 days after getting sick Influenza Follow-up ?? Follow up with the clinic, primary care provider(Murray Cantu, ) or urgent care if symptoms become more severe. ?? If you begin to feel better, then feel significantly worse, see your primary care provider or [facility] urgent care / ER ?? Call 911 or have someone take you to ER/Urgent Care if any difficulty with breathing or shortness of breath, if you develop high fevers that do not respond to ibuprofen (Advil / Motrin) or acetaminophen (Tylenol) , if you have a hard time awakening or staying awake or become lethargic or confused, or if you develop new stiffness in your neck. If you need to be excused from more than 3 days off from work, please follow-up with your PCP. CTOR OF ANALYTICS * Attachments The following attachments cannot be sent through Care Everywhere. * Influenza (AfterCare(R) Instructions(ER/ED)) (Faroese) documented in this encounter Plan of Treatment Not on file documented as of this encounter Visit Diagnoses Diagnosis Influenza A- Primary Influenza with other respiratory manifestations Abnormal gait Abnormality of gait Dizziness Dizziness and giddiness documented in this encounter Historical Medications * This list may reflect changes made after this encounter. pravastatin (PRAVACHOL) 20 mg tablet Take 1 tablet (20 mg total) by mouth daily 06/12/2024 nebivoloL (BYSTOLIC) 20 mg tablet 40 MG (2 X 20 MG) ORALLY DAILY DUE FOR APPOINTMENT IN 06/12/2024 losartan (COZAAR) 50 mg tablet TAKE 1 TABLET BY MOUTH DAILY (DUE FOR APPOINTMENT IN JULY) 06/08/2024 hydroCHLOROthiaz guanakito (HYDRODIURIL) 25 mg tablet TAKE 1 TABLET BY MOUTH EVERY DAY NEED APPOINTMENT 06/30/2024 added in this encounter Care Teams Dental Technician Relationship Specialty Start Date End Date Murray Cantu DO PCP - General Internal Medicine 05/03/17 documented as of this encounter
--- OUTSIDE RECORDS SUMMARY | 2024-08-19 11:47 | XMS_ITS ---
Author Organization Unknown Medications Medication Instructions Effective Dates (start - stop) Status - - Compl eted pravastatin sodium 20 MG Ora l Tablet - Completed - - Compl eted nebivolol 20 MG Oral Tablet [id number] :00:00Z - Completed cholecalciferol 1.25 MG Oral Capsule - Completed Patient Care team information Name Category Status Period Participants - - Proposed period not known -
--- OUTSIDE RECORDS SUMMARY | 2024-08-19 11:47 | XMS_ITS | Referral Summary ---
Author Organization [facility] [address] Address [address] [place] [address] Care Team Providers Care Ice Cream Machine Operator Name Role Phone Murray Cantu DO Primary Care Provider +1- [phone] Encounters Date Type Department Care Team Description 08/19/2024 11:45 AM DEMURRAGE AGENT Office Visit [facility] Medical Group Convenient Care at [address] [phone] Steffany Lynn PA Influenza A (Primary Dx); Abnormal gait; Dizziness from Last 3 Months Allergies No known active allergies Medications hydroCHLOROthia zide (HYDRODIURIL) 25 mg tablet TAKE 1 TABLET BY MOUTH EVERY DAY NEED APPOINTMENT 5 Active losartan (COZAAR) 50 mg tablet TAKE 1 TABLET BY MOUTH DAILY (DUE FOR APPOINTMENT IN JULY) 4 Active nebivoloL (BYSTOLIC) 20 mg tablet 40 MG (2 X 20 MG) ORALLY DAILY DUE FOR APPOINTMENT IN July 4 Active pravastatin (PRAVACHOL) 20 mg tablet Take 1 tablet (20 mg total) by mouth daily 4 Active Active Problems No known active problems Social History Tobacco Use Types Packs/Day Years Used Date Smoking Tobacco: Never Assessed Comments Unknown Sex and Gender Information Value Date Recorded Sex Assigned at Not on file Legal Sex Female 1:45 AM DEMURRAGE AGENT Gender Identity Not on file Sexual Orientation Not on file Last Filed Vital Signs Vital Sign Reading Time Taken Comments Blood Pressure 106/60 08/19/2024 11:06 AM DEMURRAGE AGENT Pulse 77 08/19/2024 11:06 AM DEMURRAGE AGENT Temperature 38.2 C (100.8 F) 08/19/2024 11:06 AM DEMURRAGE AGENT Respiratory Rate 20 08/19/2024 11:06 AM DEMURRAGE AGENT Oxygen Saturation 98% 08/19/2024 11:06 AM DEMURRAGE AGENT Inhaled Oxygen Concentration - - Weight 104.3 kg (230 lb) 08/19/2024 11:06 AM DEMURRAGE AGENT Height 167.6 cm (5' 6 ) 08/19/2024 11:06 AM DEMURRAGE AGENT Body Mass Index 37.12 08/19/2024 11:06 AM DEMURRAGE AGENT Plan of Treatment Not on file Insurance [employer] [facility] Care Teams Ice Cream Machine Operator Relationship Specialty Start Date End Date Murray Cantu DO PCP - General Internal Medicine 05/03/17
--- OUTSIDE RECORDS SUMMARY | 2024-08-19 11:47 | XMS_ITS | Clinical Summary ---
Author Organization [facility] [address] Address [address] [place] [address] Care Team Providers Care Developing Machine Operator Name Role Phone Murray Cantu DO Primary Care Provider +1- [phone] Allergies No known active allergies Medications hydroCHLOROthia [...] Active Active Problems No known active problems Encounters Date Type Department Care Team Description 08/19/2024 11:45 AM INFORMATICA Office Visit [facility] Medical Group Convenient Care at [address] [phone] Steffany Lynn PA Influenza A (Primary Dx); Abnormal gait; Dizziness from Last 3 Months Social History Tobacco Use Types Packs/Day Years Used Date Smoking Tobacco: Never Assessed Comments Unknown Sex and Gender Information Value Date Recorded Sex Assigned at Not on file Legal Sex Female 1:45 AM INFORMATICA Gender Identity Not on file Sexual Orientation Not on file Obstetrics History Last Filed Vital Signs Vital Sign Reading Time Taken Comments Blood Pressure 106/60 08/19/2024 11:06 AM INFORMATICA Pulse 77 08/19/2024 11:06 AM INFORMATICA Temperature 38.2 C (100.8 F) 08/19/2024 11:06 AM INFORMATICA Respiratory Rate 20 08/19/2024 11:06 AM INFORMATICA Oxygen Saturation 98% 08/19/2024 11:06 AM INFORMATICA Inhaled Oxygen Concentration - - Weight 104.3 kg (230 lb) 08/19/2024 11:06 AM INFORMATICA Height 167.6 cm (5' 6 ) 08/19/2024 11:06 AM INFORMATICA Body Mass Index 37.12 08/19/2024 11:06 AM INFORMATICA Plan of Treatment Health Maintenance Due Date Last Done Comments Breast Cancer Screening-Mammogram 1958 Colon Cancer Screening-Colonoscopy 1960 Depression Screening 1958 Fall Risk Assessment 1960 Hepatitis C Screening 1960 Osteoporosis Screening-Bone Density Scan 1958 DTaP/Tdap/Td Vaccine (1 - Tdap) 1969 Hepatitis B Screening 02/13/1976 Pneumococcal vaccine 65+ (1 of 1 - PCV) 02/13/2008 Zoster Vaccine (1 of 2) 02/13/2008 Well Visit 65+ 2023 Covid-19 Vaccine ( season) 2024 05/08/2021, 09/24/2020, 09/03/2020 Influenza Vaccine (#1) 2024 Insurance [employer] [facility] AETNA MEDICARE [facility] Care Teams Developing Machine Operator Relationship Specialty Start Date End Date Murray Cantu DO PCP - General Internal Medicine 05/03/17
--- OUTSIDE RECORDS SUMMARY | 2024-08-19 13:55 | XMS_ITS ---
Author Organization Unknown Medications Medication Instructions Effective Dates (start - stop) Status - - Compl eted pravastatin sodium 20 MG Ora l Tablet - Completed - - Compl eted nebivolol 20 MG Oral Tablet [id number] :00:00Z - Completed cholecalciferol 1.25 MG Oral Capsule - Completed Patient Care team information Name Category Status Period Participants - - Proposed period not known -
--- OUTSIDE RECORDS SUMMARY | 2024-08-19 13:55 | XMS_ITS | Encounter Summary ---
Author Organization [facility] Healthcare Address [address] [place] [address] Care Team Providers Care Arson Investigator Name Role Phone Murray Cantu DO Primary Care Provider +1- [phone] Reason for Visit * Reason Comments Flu Symptoms Patient here for c/o flu sx, fever, loss of taste and smell, body aches, unsteady gait and ringing in ears that started wednesday Encounter Details Date Type Department Care Team (Late st Contact Info) Description 08/19/2024 11:45 AM DIRECTOR OF SECURITY Office Visit [facility] Medical Group Convenient Care at [address] [phone] Steffany Lynn PA [address] [place] [address] [address] [place] [address] Influenza A (Primary Dx); Abnormal gait; Dizziness Social History Tobacco Use Types Packs/Day Years Used Date Smoking Tobacco: Never Assessed Comments Unknown Sex and Gender Information Value Date Recorded Sex Assigned at Not on file Legal Sex Female 1:45 AM DIRECTOR OF SECURITY Gender Identity Not on file Sexual Orientation Not on file documented as of this encounter Last Filed Vital Signs Vital Sign Reading Time Taken Comments Blood Pressure 106/60 08/19/2024 11:06 AM DIRECTOR OF SECURITY Pulse 77 08/19/2024 11:06 AM DIRECTOR OF SECURITY Temperature 38.2 C (100.8 F) 08/19/2024 11:06 AM DIRECTOR OF SECURITY Respiratory Rate 20 08/19/2024 11:06 AM DIRECTOR OF SECURITY Oxygen Saturation 98% 08/19/2024 11:06 AM DIRECTOR OF SECURITY Inhaled Oxygen Concentration - - Weight 104.3 kg (230 lb) 08/19/2024 11:06 AM DIRECTOR OF SECURITY Height 167.6 cm (5' 6 ) 08/19/2024 11:06 AM DIRECTOR OF SECURITY Body Mass Index 37.12 08/19/2024 11:06 AM DIRECTOR OF SECURITY documented in this encounter Patient Instructions * Patient Instructions* Steffany Lynn PA - 08/19/2024 11:45 AM DIRECTOR OF SECURITY Influenza ?? Supportive care is the focus [...] see your primary care provider or [facility] urgent care / ER ?? Call [...] please follow-up with your PCP. CTOR OF SECURITY * Attachments The following attachments cannot be sent through Care Everywhere. * Influenza (AfterCare(R) Instructions(ER/ED)) (British) documented in this encounter Plan of Treatment [...] 06/30/2024 added in this encounter Care Teams Arson Investigator Relationship Specialty Start Date End Date Murray Cantu DO PCP - General Internal Medicine 05/03/17 documented as of this encounter
--- OUTSIDE RECORDS SUMMARY | 2024-08-19 13:55 | XMS_ITS | Referral Summary ---
Author Organization [facility] [address] Address [address] [place] [address] Care Team Providers Care Municipal Clerk Name Role Phone Murray Cantu DO Primary Care Provider +1- [phone] Encounters Date Type Department Care Team Description 08/19/2024 11:45 AM YARD LABORER Office Visit [facility] Medical Group Convenient Care at [address] [phone] Steffany Lynn PA Influenza A [...] on file Legal Sex Female 1:45 AM YARD LABORER Gender Identity Not on file Sexual Orientation Not on file Last Filed Vital Signs Vital Sign Reading Time Taken Comments Blood Pressure 106/60 08/19/2024 11:06 AM YARD LABORER Pulse 77 08/19/2024 11:06 AM YARD LABORER Temperature 38.2 C (100.8 F) 08/19/2024 11:06 AM YARD LABORER Respiratory Rate 20 08/19/2024 11:06 AM YARD LABORER Oxygen Saturation 98% 08/19/2024 11:06 AM YARD LABORER Inhaled Oxygen Concentration - - Weight 104.3 kg (230 lb) 08/19/2024 11:06 AM YARD LABORER Height 167.6 cm (5' 6 ) 08/19/2024 11:06 AM YARD LABORER Body Mass Index 37.12 08/19/2024 11:06 AM YARD LABORER Plan of Treatment Not on file Insurance [employer] [facility] Care Teams Municipal Clerk Relationship Specialty Start Date End Date Murray Cantu DO PCP - General Internal Medicine 05/03/17
--- OUTSIDE RECORDS SUMMARY | 2024-08-19 13:55 | XMS_ITS | Clinical Summary ---
Author Organization [facility] [address] Address [address] [place] [address] Care Team Providers Care Hospital Nursing Assistant Name Role Phone Murray Cantu DO Primary Care Provider +1- [phone] Allergies No known active allergies Medications hydroCHLOROthia [...] Department Care Team Description 08/19/2024 11:45 AM RESTAURANT ASSISTANT Office Visit [facility] Medical Group Convenient Care at [address] [phone] Steffany Lynn PA Influenza A (Primary Dx); Abnormal gait; Dizziness from Last 3 Months Social History Tobacco Use Types Packs/Day Years Used Date Smoking Tobacco: Never Assessed Comments Unknown Sex and Gender Information Value Date Recorded Sex Assigned at Not on file Legal Sex Female 1:45 AM RESTAURANT ASSISTANT Gender Identity Not on file Sexual Orientation Not on file Obstetrics History Last Filed Vital Signs Vital Sign Reading Time Taken Comments Blood Pressure 106/60 08/19/2024 11:06 AM RESTAURANT ASSISTANT Pulse 77 08/19/2024 11:06 AM RESTAURANT ASSISTANT Temperature 38.2 C (100.8 F) 08/19/2024 11:06 AM RESTAURANT ASSISTANT Respiratory Rate 20 08/19/2024 11:06 AM RESTAURANT ASSISTANT Oxygen Saturation 98% 08/19/2024 11:06 AM RESTAURANT ASSISTANT Inhaled Oxygen Concentration - - Weight 104.3 kg (230 lb) 08/19/2024 11:06 AM RESTAURANT ASSISTANT Height 167.6 cm (5' 6 ) 08/19/2024 11:06 AM RESTAURANT ASSISTANT Body Mass Index 37.12 08/19/2024 11:06 AM RESTAURANT ASSISTANT Plan of Treatment Health Maintenance Due Date [...] 09/24/2020, 09/03/2020 Influenza Vaccine (#1) 2024 Insurance [employer] [facility] AETNA MEDICARE [employer] Care Teams Hospital Nursing Assistant Relationship Specialty Start Date End Date Murray Cantu DO PCP - General Internal Medicine 05/03/17
--- NOTE | 2024-08-19 14:05 | ED_ITS ---
HPI - Fever General Chief Complaint: Fever Stated Complaint: fever Time Seen by Provider: 08/19/24 13:46 History of Present Illness HPI Narrative: 65-year-old female with a past medical history including hypertension, hyperlipidemia. Presents to the emergency department for evaluation of flu-like symptoms for last several days. She went to urgent care today and was swabbed and tested positive for influenza A. Was referred to the ER for chest x-ray imaging as she was having a persistent fever. Patient states that she has been feeling hot and having elevated temperatures at home. Borderline febrile here with a temperature 37.7? C. Has been getting ftow-dkj-eexdtfx cold and flu medications and pseudoephedrine. Patient states that she has been having a productive cough, myalgias, back pain, and congestion. She has otherwise been in her normal state of health. No recent antibiotics. No nausea or vomiting. No diarrhea. No chest pain shortness a breath. Related Data Home Medications ?Medication ?Instructions ?Recorded ?Confirmed ?Last Taken ?Type cholecalciferol (vitamin D3) 125 5,000 unit PO DAILY 07/26/20 02/01/24 Unknown History mcg (5,000 unit) capsule Allergies Allergy/AdvReac Type Severity Reaction Status Date / Time No Known Drug Allergies Allergy Unknown Unknown Verified 08/19/24 14:37 Review of Systems 2 Review of Systems: As reviewed above in HPI [facility] Past Medical History Medical History COVID-19 HLD (hyperlipidemia) Vitamin D deficiency HTN (hypertension) Surgical History Surgical History History of section Family History Family History Mother Patient's mother is in good health Family history of diabetes mellitus in first degree relative Family history of coronary artery disease Sibling Patient's sister is in good health Patient's brother is in good health Cerebrovascular accident Family history of malignant neoplasm of breast in first degree relative, Onset Age: 55 Father Hypertension Cerebrovascular accident Other Diabetes mellitus Family history of arthritis Family history of malignant neoplasm Social History Social History Smoking status: Never smoker Alcohol intake: current Exam Narrative: GENERAL: [Well-appearing, well-nourished, and in no acute distress.] HEAD: [Normocephalic, atraumatic.] EYES: [PERRLA and EOMI.] ENT: Nares clear, no rhinorrhea or epistaxis. Mucous membranes moist. Mild infusion behind the left tympanic membrane but overall clear without any exudates, no erythema or signs of otitis. Right side has cerumen impaction but no tenderness or redness. NECK: Supple. CHEST: No tachypnea, overall clear breath sounds HEART: [Regular rate and rhythm]. No murmur heard. [Normal peripheral pulses.] ABDOMEN: [Soft, nondistended], [nontender], [No rigidity or guarding] EXTREMITIES: Normal range of motion. [No edema.] SKIN: Warm, dry, no rash. NEURO: [No focal deficits]. Alert and oriented [x3.] PSYCH: [Normal mood and affect.] Course Vital Signs Vital signs: Vital Signs Temperature 37.7 C H 08/19/24 11:46 Pulse Rate 77 08/19/24 11:46 Respiratory Rate 18 08/19/24 11:46 Blood Pressure 118/50 L 08/19/24 11:46 Pulse Oximetry 96 08/19/24 11:46 Oxygen Delivery Room Air 08/19/24 11:46 Temperature 37.7 C H 08/19/24 11:46 Pulse Rate 77 08/19/24 11:46 Respiratory Rate 18 08/19/24 11:46 Blood Pressure 118/50 L 08/19/24 11:46 Pulse Oximetry 96 08/19/24 11:46 Oxygen Delivery Room Air 08/19/24 11:46 MDM - Fever MDM Narrative Medical decision making narrative: 64-year-old female presenting to the emergency department for evaluation of flu- like symptoms and fever and subjective chills for last few days. She has been having myalgias and productive cough. Been treated with cvir-nzg-khvpqlg medications including decongestants, cold and sinus medications, Tylenol for fever. She has borderline febrile here at 37.7 but did not take any anti- inflammatory or antipyretic medications today. Normal vital signs otherwise without any tachycardia, hypoxia or significant blood pressure concerns. She is overall very well-appearing, not any acute distress. Suspicion presently is for a upper respiratory infection likely secondary to the influenza however given the fever suspicion for potential lower tract infection such as bronchitis versus pneumonia is also possible. Low suspicion other underlying process given her classical historical features and overall well appearance. Two-view chest x-ray was obtained. She was already diagnosed in swab this morning so no need for additional swabs. Was given Tylenol for her fever and after discussion with the patient about the risks and benefits of initiation and oseltamivir patient would like to pursue this. She was given a 1st dose of 75 mg here. Chest x-ray shows no evidence of pneumonia, no consolidations or pleural effusion. No pneumothorax. Patient was re-evaluated and felt improved after Tylenol. Was given her 1st dose of oseltamivir here and will be sent home with a course. Patient verbalized expressing understanding of the instructions as well as given return precautions and she was safe for discharge and regular PCP follow-up. Medical Records Attestation: I reviewed the patient's medical records. Imaging Data Attestation: I personally reviewed and interpreted this imaging study as follows: My impression: Impressions Chest X-Ray 08/19/24 14:16 IMPRESSION: 1. Mild atelectasis at left lung base. Discharge Plan Discharge Clinical Impression: Influenza Patient Disposition: Home, Self-Care Condition: Stable Instructions: Antibiotic Form, Oseltamivir (By mouth), Influenza (ED) Additional Instructions: Your chest x-ray shows no evidence of a pneumonia, we will treat you with all cell to move your after we discussed the risks and benefits as well as the potential side effects. Continue taking your bvqv-euh-qezsjsw regimen including Tylenol for any fevers or chills, decongestant medications and any ove o-cnl-ygtuuej flu medications. Return with any new or worsening concerns such as difficulty in breathing, chest pains, inability to tolerate oral intake or any other concerns. Follow-up with regular doctor. Patient Language: Irish Prescriptions: New oseltamivir [Tamiflu] 75 mg capsule 75 mg PO Q12H 5 Days Qty: 10 0RF No Action cholecalciferol (vitamin D3) 125 mcg (5,000 unit) capsule 5,000 unit PO DAILY losartan 50 mg tablet 50 mg PO DAILY Qty: 90 0RF Rx Instructions: NEEDS APPOINTMENT IN JULY nebivolol 20 mg tablet 40 mg PO DAILY Qty: 180 0RF Rx Instructions: NEEDS APPOINTMENT IN JULY hydrochlorothiazide 25 mg tablet 25 mg PO DAILY Qty: 30 0RF Rx Instructions: NEEDS APPOINTMENT FOR FURTHER REFILLS pravastatin 20 mg tablet 20 mg PO DAILY Qty: 30 0RF Follow-up/Referrals: Murray Cantu DO [Primary Care Provider] - Time of Disposition: 14:47
[2024-08-19] MEDS: OSELTAMIVIR PHOSPHATE 75 MG CAPSULE PO (14:38)
[2024-08-19] MEDS: ACETAMINOPHEN 500 MG TABLET 1000 MG PO (14:38)
[2024-08-19 15:30] VITALS: BP 117/61; PULSE 73; RESP 16; O2SAT 96
== END 2024-08-19 15:33 | disposition home or self-care (01) ==
PROVIDERS: Emergency Provider Student in an Organized Health Care Education/Training Program; PCP Internal Medicine
DX: J10.1 Influenza due to other identified influenza virus with other respiratory manifestations (principal); I10 Essential (primary) hypertension; E78.5 Hyperlipidemia, unspecified; E55.9 Vitamin D deficiency, unspecified; Z86.16 Personal history of COVID-19
CPT/HCPCS: 71046; 99283; A9270